=== PATIENT | female | born 1940 | race Caucasian/White ===

== ENCOUNTER 2022-09-15 06:04 | Inpatient (IN) ==
[~2022-09-15 06:04] MED LIST: CLINDAMYCIN INJ 900 MG/50 ML PREMIX IV ONE; VANCOMYCIN INJ 1,000 MG in SODIUM CHLORIDE 0.9% 250 ML IV ONE
[2022-09-15] MEDS: LACTATED RINGERS 1,000 ML IV SCH (06:31)
[2022-09-15] MEDS ORDERED: FAMOTIDINE 20 MG TABLET PO ONE (06:45)
[2022-09-15 06:53] LABS: PT Patient Result 10.7 SECS (10.1-12.1); Partial Thromboplastin Time 26.8 SECS (23.7-32.9)
[2022-09-15] MEDS ORDERED: propofoL 200 MG/20 ML VIAL IV ONE ×2 (06:53→08:53)
[2022-09-15] MEDS ORDERED: BUPIVACAINE SPINAL 0.75% 2 ML AMP SPINAL ONE (06:53)
[2022-09-15] MEDS ORDERED: LIDOCAINE 2% 5 ML VIAL ONE (06:53)
[2022-09-15] MEDS ORDERED: MIDAZOLAM 2 MG/2 ML VIAL ONE (06:55)
[2022-09-15] MEDS ORDERED: fentaNYL 100 MCG/2 ML VIAL ONE (06:55)
[2022-09-15] MEDS ORDERED: buprenorphine HCL 0.3 MG/ML VIAL ONE (06:56)
[2022-09-15] MEDS ORDERED: DEXAMETHASONE 4 MG/1 ML VIAL ONE ×2 (07:03→08:53)
[2022-09-15] MEDS ORDERED: ROPIVACAINE 0.5% 30 ML VIAL ONE (07:03)
[2022-09-15] MEDS ORDERED: LIDOCAINE 1% 5 ML VIAL ONE (07:03)
[2022-09-15] MEDS ORDERED: ONDANSETRON 4 MG/2 ML VIAL ONE ×2 (07:04→08:53)
[2022-09-15] MEDS ORDERED: ePHEDrine 50 MG/ML VIAL ONE (08:47)
[2022-09-15] MEDS ORDERED: SODIUM CHLORIDE 0.9% 250 ML IV ONE (08:53)
[2022-09-15] MEDS ORDERED: ACETAMINOPHEN INJ 1,000 MG/100 ML VIAL IV ONE (09:43)
[2022-09-15] MEDS ORDERED: PHENYLEPHRINE 1 MG/10 ML SYRINGE IV ONE (10:07)
[2022-09-15] MEDS ORDERED: TEMAZEPAM 7.5 MG CAPSULE PO PRN (10:13)
[2022-09-15] MEDS ORDERED: MORPHINE 2 MG/1 ML SYRINGE IV PRN ×2 (10:13→10:32)
[2022-09-15] MEDS ORDERED: diphenhydrAMINE CAP 25 MG CAPSULE PO PRN (10:13)
[2022-09-15] MEDS ORDERED: PROMETHAZINE 25 MG/1 ML VIAL IM PRN (10:13)
[2022-09-15] MEDS ORDERED: BISACODYL 10 MG SUPP RECTAL PRN (10:13)
[2022-09-15] MEDS ORDERED: LACTULOSE 20 GM/30 ML UDCUP PO PRN (10:13)
[2022-09-15] MEDS ORDERED: MAGNESIUM HYDROXIDE SUSP 30 ML UDCUP PO PRN (10:13)
[2022-09-15] MEDS: ONDANSETRON 4 MG/2 ML VIAL IV PRN ×2 (13:15→19:00)
[2022-09-15] MEDS: CLINDAMYCIN INJ 900 MG/50 ML PREMIX IV SCH ×2 (15:08→23:06)
[2022-09-15] MEDS: DOCUSATE SODIUM 100 MG CAPSULE PO SCH (20:35)
[2022-09-15] MEDS: FONDAPARINUX 2.5 MG/0.5 ML SYRINGE SUBCUT SCH (20:36)
[2022-09-15] MEDS: BIMATOPROST 0.01% OPH SOLN 2.5 ML BOTTLE BOTH EYES SCH (22:15)
[2022-09-16 05:32] LABS: Hematocrit 29.6 VOL% (35.7-47.0); Hemoglobin 10.1 GM/DL (12.0-16.0); Immature Granulocytes % 0.5 %; Immature Granulocytes Absolute 0.05 #; Lymphocytes # 0.4 10*3/uL (1.4-4.0); Lymphocytes % 4.4 % (21.3-54.2); Mean Corpuscular HGB Conc 34.1 GM/DL (32-36); Mean Corpuscular Volume 92.5 FL (87-102); Mean Platelet Volume 9.4 FL (9.6-12.0); Monocytes % 10.2 % (1.7-12.7); Neutrophils % 84.9 % (38.7-73.9); Platelet Count 253 T/CUMM (130-400); Red Cell Distribution Width 13.2 % (9.3-17.3); White Blood Count 9.6 T/CUMM (4-12)
[2022-09-16 05:52] LABS: Calcium 8.4 MG/DL (8.5-10.1); Osmolality,Calculated 284.1 MOS/KG (273-304); Potassium 4.2 MMOL/L (3.5-5.1)
[2022-09-16 06:13] LABS: Lymphocytes 9 % (20-55); Platelet Estimate Adequate; Total Cells Counted 100
[2022-09-16] MEDS: MELOXICAM 7.5 MG TABLET PO SCH (08:33)
[2022-09-16] MEDS: DOCUSATE SODIUM 100 MG CAPSULE PO SCH ×2 (08:33→20:10)
[2022-09-16] MEDS: CYANOCOBALAMIN 500 MCG TABLET PO SCH (08:33)
[2022-09-16] MEDS: amLODIPine 10 MG TABLET PO SCH (08:33)
[2022-09-16] MEDS: MULTIVITAMIN (BEROCCA) TABLET PO SCH (08:33)
[2022-09-16] MEDS: ASPIRIN 325 MG TABLET PO SCH (08:33)
[2022-09-16] MEDS ORDERED: ACETAMINOPHEN 325 MG TABLET PO PRN (10:14)
[2022-09-16] MEDS: LACTATED RINGERS 1,000 ML IV SCH (10:19)
[2022-09-16] MEDS: ONDANSETRON 4 MG/2 ML VIAL IV PRN (12:04)
[2022-09-16] MEDS: FONDAPARINUX 2.5 MG/0.5 ML SYRINGE SUBCUT SCH (20:13)
[2022-09-16] MEDS: BIMATOPROST 0.01% OPH SOLN 2.5 ML BOTTLE BOTH EYES SCH (22:52)
[2022-09-17] MEDS: LACTATED RINGERS 1,000 ML IV SCH (07:49)
[2022-09-17] MEDS: CYANOCOBALAMIN 500 MCG TABLET PO SCH (08:46)
[2022-09-17] MEDS: ASPIRIN 325 MG TABLET PO SCH (08:46)
[2022-09-17] MEDS: MULTIVITAMIN (BEROCCA) TABLET PO SCH (08:46)
[2022-09-17] MEDS: DOCUSATE SODIUM 100 MG CAPSULE PO SCH ×2 (08:46→20:51)
[2022-09-17] MEDS: MELOXICAM 7.5 MG TABLET PO SCH (08:46)
[2022-09-17] MEDS: amLODIPine 10 MG TABLET PO SCH (12:30)
[2022-09-17] MEDS: FONDAPARINUX 2.5 MG/0.5 ML SYRINGE SUBCUT SCH (20:52)
[2022-09-17] MEDS: BIMATOPROST 0.01% OPH SOLN 2.5 ML BOTTLE BOTH EYES SCH ×2 (20:52→22:24)
[2022-09-18 08:11] VITALS: BP 137/61
[2022-09-18] MEDS: ASPIRIN 325 MG TABLET PO SCH (08:58)
[2022-09-18] MEDS: DOCUSATE SODIUM 100 MG CAPSULE PO SCH (08:58)
[2022-09-18] MEDS: CYANOCOBALAMIN 500 MCG TABLET PO SCH (08:58)
[2022-09-18] MEDS: MULTIVITAMIN (BEROCCA) TABLET PO SCH (08:58)
[2022-09-18] MEDS: MELOXICAM 7.5 MG TABLET PO SCH (08:58)
[2022-09-18] MEDS: amLODIPine 10 MG TABLET PO SCH (08:58)
== END 2022-09-18 11:20 | disposition home health service (06) | DRG 470 ==
LOC: N.SDSINP 06:04 → N.3E 11:23
PROVIDERS: ADMIT Orthopaedic Surgery; ATTEND Orthopaedic Surgery